=== PATIENT | male | born 1985 | race Caucasian/White ===

== ENCOUNTER 2018-07-22 23:31 | Emergency (ER) | payer SELFPAY ==
[~2018-07-22] VITALS: Ht 185.4 cm; Wt 138.3 kg
--- OUTSIDE RECORDS SUMMARY | 2018-07-22 23:38 | XMS REPORT ---
Author Author JEROME WALLER Organization [facility] Address [address] [place] [address] Care Team Providers Care Crm Architect Name Role Phone WALLERJEROME Unavailable PROBLEMS Type Condition ICD9-CM Code XFK62-LR Code Onset Dates Condition Status SNOMED Code Problem Anxiety F41.9 Active 10411314 Problem Insomnia G47.00 Active 639004358 ALLERGIES No Information ENCOUNTERS Encounter Location Date Diagnosis [facility] [id number] [place] [address] [id number] Jul, [id number] [place] [address] [id number] Jun, [facility] [id number] [place] [address] [id number] Jun, General medical examination Z00.00 [facility] [id number] [place] [address] [id number] Jun, Chest discomfort R07.89 ; Anxiety F41.9 ; Insomnia G47.00 ; General medical examination Z00.00 and BMI 40.0-44.9, adult Z68.41 [address] [id number] [place] [address] [phone] Dec, No diagnosis on [place] I Z03.89 [id number] [place] [address] [phone] Dec, Dental examination Z01.20 IMMUNIZATIONS No Known Immunizations SOCIAL HISTORY Never Assessed REASON FOR VISIT Med questions PLAN OF CARE VITAL SIGNS MEDICATIONS Unknown Medications RESULTS No Results PROCEDURES No Known procedures INSTRUCTIONS MEDICATIONS ADMINISTERED No Known Medications MEDICAL (GENERAL) HISTORY Type Description Date Surgical History No know Surgical history
--- OUTSIDE RECORDS SUMMARY | 2018-07-22 23:38 | XMS REPORT ---
Author Author JEROME WALLER Organization [facility] Address [address] [place] [address] Care Team Providers Care Float Nurse Name Role Phone SRIDHAR JEROME Unavailable PROBLEMS Type Condition ICD9-CM Code XBF98-XD Code Onset Dates Condition Status SNOMED Code Problem Anxiety F41.9 Active 33540414 Problem Insomnia G47.00 Active [id number] ALLERGIES No Information ENCOUNTERS Encounter Location Date Diagnosis [facility] [id number] [place] [address] [id number] Jul, [id number] [place] [address] [phone] Jun, [facility] [id number] [place] [address] [id number] Jun, General medical examination Z00.00 [facility] [id number] [place] [address] [id number] Jun, Chest discomfort R07.89 ; Anxiety F41.9 ; Insomnia G47.00 ; General medical examination Z00.00 and BMI 40.0-44.9, adult Z68.41 [address] [id number] [place] [phone] Dec, No diagnosis on [place] I Z03.89 [id number] [place] [address] [phone] Dec, Dental examination Z01.20 IMMUNIZATIONS No Known Immunizations SOCIAL HISTORY Never Assessed REASON FOR VISIT Labs Zina DIAS PLAN OF CARE Activity Details Pending Test INTERPRETATION Pending Test LIPID PANEL Pending Test CMP Pending Test CBC Pending Test THYROID ANALYZER Future/Pending Procedure ROUTINE VENIPUNCTURE VITAL SIGNS MEDICATIONS Unknown Medications RESULTS No Results PROCEDURES Procedure Date Ordered Result Body Site LIPID PANEL Jun 15, 2018 COMPREHEN METABOLIC PANEL Jun 15, 2018 ASSAY THYROID STIM HORMONE Jun 15, 2018 COMPLETE CBC W/AUTO DIFF WBC Jun 15, 2018 VENIPUNCT, ROUTINE* Jun 15, 2018 INSTRUCTIONS MEDICATIONS ADMINISTERED No Known Medications MEDICAL (GENERAL) HISTORY Type Description Date Surgical History No know Surgical history
[2018-07-23] MEDS ORDERED: VANCOMYCIN INJECTION 1,000 MG in NS (IVPB) 250 ML IV ONE (00:30)
[2018-07-23] MEDS ORDERED: KETOROLAC 30 MG/ML VIAL IVP ONE (00:30)
[2018-07-23] MEDS ORDERED: ACETAMINOPHEN 500 MG TAB (TYLENOL) PO ONE (00:30)
[2018-07-23 00:48] LABS: BASOPHILS % (AUTO) 0 % (0-10); EOSINOPHILS # (AUTO) 0.2 10^3/uL (0.0-0.3); EOSINOPHILS % (AUTO) 2 % (0-10); HEMATOCRIT 41 % (40-54); HEMOGLOBIN 13.9 G/DL (13.3-17.7); LYMPHOCYTES # (AUTO) 1.2 X 10^3 (1.0-4.0); LYMPHOCYTES % (AUTO) 12 % (12-44); MEAN CORPUSCULAR HEMOGLOBIN 30 PG (25-34); MEAN CORPUSCULAR HGB CONC 34 G/DL (32-36); MEAN CORPUSCULAR VOLUME 89 FL (80-99); MONOCYTES # (AUTO) 0.8 X 10^3 (0.0-1.0); MONOCYTES % (AUTO) 8 % (0-12); NEUTROPHILS # (AUTO) 7.6 X 10^3 (1.8-7.8); NEUTROPHILS % (AUTO) 78 % (42-75); PLATELET COUNT 148 10^3/uL (130-400); RED BLOOD COUNT 4.67 10^6/uL (4.35-5.85); RED CELL DISTRIBUTION WIDTH 13.3 % (10.0-14.5); WHITE BLOOD COUNT 9.8 10^3/uL (4.3-11.0)
[2018-07-23 00:58] LABS: PROTHROMBIN TIME PATIENT 12.8 SEC (12.2-14.7)
[2018-07-23 01:02] LABS: ALBUMIN 4.4 GM/DL (3.2-4.5); BILIRUBIN,TOTAL 0.4 MG/DL (0.1-1.0); CALCIUM 9.4 MG/DL (8.5-10.1); CREATININE SERUM 1.39 MG/DL (0.60-1.30); POTASSIUM 4.1 MMOL/L (3.6-5.0); TOTAL PROTEIN 7.2 GM/DL (6.4-8.2)
[2018-07-23 01:14] LABS: ERYTHROCYTE SEDIMENTATION RATE 20 MM/HR (0-15)
[2018-07-23] MEDS ORDERED: RX-TRAMADOL 50 MG (ULTRAM) TAB PPK#4 PO STA (02:51)
[2018-07-23] MEDS ORDERED: TRAM-42 PO (02:57)
[2018-07-23] MEDS ORDERED: SULF1TAB35 PO (02:57)
--- NOTE | 2018-07-23 02:57 | ED Integumentary General ---
General Chief Complaint: Bite-Animal/Human/Insect Stated Complaint: RT LEG,CALF- BUG BITE/FEVER 103. Nursing Triage Note: PT ARRIVES TO ED ROOM # 5 WITH C/O POSSIBLE INSECT/SPIDER BITE. PT STATES THAT HE NOTICED A SMALL PIMPLE LIKE BITE ON HIS RLE ON MONDAY. PT STATES HE WENT TO THE WALK IN CLINIC ON MONDAY AND WAS PRESCRIBED ABX. PT STATES THE BITE IS GETTING WORSE, INCREASING PAIN/REDDNESS/SWELLING, WARM TO TOUCH, AND HE SPIKED A FEVER OF 103.0 @2230 AND TOOK SOME IBUPROFEN. Source: patient History of Present Illness Date Seen by Provider: Jul 23, 2018 Time Seen by Provider: 00:19 Initial Comments PT ARRIVES VIA POV STATES "I GOT SOME KIND OF INFECTION" STATES HE NOTICED A SMALL SORE, BUMP ON LATERAL ASPECT OF RIGHT LOWER LEG ON Monday07/19/18. HAD INCREASED PAIN TO AREA ON MONDAY AND WENT TO [facility] IN [place]--STATES HIS WORK SENT HIM THERE. STATES HE WAS GIVEN RX FOR BACTRIM BEGAN RUNNING FEVER ON MONDAY AM OF 100 TONIGHT AT 2200, HIS FEVER GOT UP TO 103--TOOK IBUPROFEN AROUND 2230 STATES HE HAS INCREASED PAIN, REDNESS AND SWELLING TO LOWER LEG ALSO HAVING BODY ACHES NO DRAINAGE FROM THE AREA. NO KNOWN TRAUMA. PT DOES HAVE PSORIASIS, BUT THIS AREA IS NOT IN DIRECT INVOLVEMENT WITH AREAS OF SKIN WITH PSORIASIS PLAQUES AND NO GROSSLY OPEN SKIN FROM PSORIASIS. PT DOES NOT TAKE MEDICATION FOR PSORIASIS OR FOR ANY OTHER MEDICAL PROBLEMS PT DOES HAVE A HISTORY OF SIMILAR WHEN HE HAD A LARGE SCROTAL ABSCESS 2 YEARS AGO--NO SURGERY OR I&D, TREATED OUTPATIENT WITH ANTIBIOTICS. PT HAS FOLLOW UP APPOINTMENT TOMORROW MORNING AT 0945 AT [facility] IN [place] FOR THIS PROBLEM HE ALSO [facility], TO RECHECK / REVIEW ROUTINE LAB--HIGH TRIGLYCERIDES AND THYROID TESTS. PCP: NANETTE Allergies and Home Medications Allergies Coded Allergies: No Known Drug Allergies (Unverified , 07/23/18) Home Medications Sulfamethoxazole/Trimethoprim 1 Each Tablet, 2 EACH PO BID Prescribed by: MAREK VILLEGAS on 07/23/18256 Tramadol HCl 50 Mg Tablet, 50 MG PO Q4H Prescribed by: MAREK VILLEGAS on 07/23/18256 Patient Home Medication List Home Medication List Reviewed: Yes Review of Systems Review of Systems Constitutional: see HPI, fever Respiratory: no symptoms reported Cardiovascular: no symptoms reported Gastrointestinal: no symptoms reported Genitourinary: no symptoms reported Musculoskeletal: see HPI Skin: see HPI Psychiatric/Neurological: No Symptoms Reported; Denies Numbness, Denies Paresthesia, Denies Weakness Endocrine: No Symptoms Reported Hematologic/Lymphatic: No Symptoms Reported Past Pugvwlj-Xuaark-Oexzup Hx Patient Social History Alcohol Use: Past History (MODERATE ETOH WHEN YOUNG) Recreational Drug Use: Yes (THC WHEN YOUNG) Smoking Status: Current Everyday Smoker (1/2 PPD CIGARETTES IN PAST, NOW SMOKES CIGARS) Type Used: Cigars, Cigarettes 2nd Hand Smoke Exposure: No Recent Foreign Travel: No Contact w/Someone Who Travel: No Recent Infectious Disease Expo: No Recent Hopitalizations: No Physical Abuse: No Sexual Abuse: No Mistreated: No Fear: No Immunizations Up To Date Tetanus Booster (TDap): More than 5yrs (2009) Seasonal Allergies Seasonal Allergies: No Past Medical History Surgeries: No Respiratory: No Cardiac: No Neurological: No Genitourinary: No Gastrointestinal: No Musculoskeletal: No Endocrine: No HEENT: No Cancer: No Psychosocial: No Integumentary: Yes Psoriasis Blood Disorders: No Physical Exam Vital Signs Vital Signs - First Documented 07/23/18 07/23/18 00:53 02:14 Temp 102.3 Pulse 109 Resp 18 B/P (MAP) 145/75 (98) Pulse Ox 98 Capillary Refill : Less Than 3 Seconds General Appearance: no apparent distress, obese, other (TALKS LOUDLY, NON-STOP , ANXIOUS) Cardiovascular: regular rate, rhythm, no murmur Respiratory: normal breath sounds Extremities: normal range of motion, normal capillary refill, other (LATERAL ASPECT OF RIGHT LOWER LEG WITH TINY SCABBED AREA--APPROXIMATELY 3 CM IN DIAMETER. HAS LARGE AREA OF SURROUNDING ERYTHEMA, WARMTH, INDURATION AND MARKED TENDERNESS TO LATERAL ASPECT OF RIGHT LOWER LEG, EXTENDING TO POSTERIORLY TO MEDIAL CALF, AND EXTENDING ANTERIORLY TO MID LINE. EXTENDS DISTALLY TO JUST ABOVE THE ANKLE, AND EXTENDS PROXIMALLY TO POPLITEAL AREA. KNEE IS NOT INCLUDED , DOES NOT CROSS ANY JOINT LINES. NO AREAS OF FLUCTUANCE OR DRIAINGE. NO STREAKS. ) Neurologic/Psychiatric: polygraph operator II-XII nml as tested, no motor/sensory deficits, alert, oriented x 3 Skin: normal color, warm/dry, other ( ABOVE; ALSO NOTED TO HAVE TYPICAL APPEARING PLAQUE PSORIASIS TO KNEES. OTHER PARTS OF BODY) Progress/Results/Core Measures Results/Orders Lab Results Laboratory Tests Test 07/23/18 00:33 07/23/18 00:56 Range/Units White Blood Count 9.8 4.3-11.0 10^3/uL Red Blood Count 4.67 4.35-5.85 10^6/uL Hemoglobin 13.9 13.3-17.7 G/DL Hematocrit 41 40-54 % Mean Corpuscular Volume 89 80-99 FL Mean Corpuscular Hemoglobin 30 25-34 PG Mean Corpuscular Hemoglobin Concent 34 32-36 G/DL Red Cell Distribution Width 13.3 10.0-14.5 % Platelet Count 148 130-400 10^3/uL Mean Platelet Volume 12.0 H 7.4-10.4 FL Neutrophils (%) (Auto) 78 H 42-75 % Lymphocytes (%) (Auto) 12 12-44 % Monocytes (%) (Auto) 8 0-12 % Eosinophils (%) (Auto) 2 0-10 % Basophils (%) (Auto) 0 0-10 % Neutrophils # (Auto) 7.6 1.8-7.8 X 10^3 Lymphocytes # (Auto) 1.2 1.0-4.0 X 10^3 Monocytes # (Auto) 0.8 0.0-1.0 X 10^3 Eosinophils # (Auto) 0.2 0.0-0.3 10^3/uL Basophils # (Auto) 0.0 0.0-0.1 10^3/uL Erythrocyte Sedimentation Rate 20 H 0-15 MM/HR Prothrombin Time 12.8 12.2-14.7 SEC INR Comment 1.0 0.8-1.4 Activated Partial Thromboplast Time 40 H 24-35 SEC Sodium Level 136 135-145 MMOL/L Potassium Level 4.1 3.6-5.0 MMOL/L Chloride Level 102 98-107 MMOL/L Carbon Dioxide Level 23 21-32 MMOL/L Anion Gap 11 5-14 MMOL/L Blood Urea Nitrogen 13 7-18 MG/DL Creatinine 1.39 H 0.60-1.30 MG/DL Estimat Glomerular Filtration Rate 60 BUN/Creatinine Ratio 9 Glucose Level 114 H 70-105 MG/DL Calcium Level 9.4 8.5-10.1 MG/DL Corrected Calcium 9.1 8.5-10.1 MG/DL Total Bilirubin 0.4 0.1-1.0 MG/DL Aspartate Amino Transf (AST/SGOT) 22 5-34 U/L Alanine Aminotransferase (ALT/SGPT) 31 0-55 U/L Alkaline Phosphatase 78 40-136 U/L Total Protein 7.2 6.4-8.2 GM/DL Albumin 4.4 3.2-4.5 GM/DL Lactic Acid Level 1.01 0.50-2.00 MMOL/L Micro Results Microbiology 07/23/18 Influenza Types A,B Antigen (ROMEL) - Final, Complete My Orders Orders - MAREK VILLEGAS DO Saline Lock/Iv-Start (07/23/18 00:25) Cbc With Automated Diff (07/23/18 00:25) Comprehensive Metabolic Panel (07/23/18 00:25) Erythrocyte Sedimentation Rate (07/23/18 00:25) Lactic Acid Analyzer (07/23/18 00:25) Protime With Inr (07/23/18 00:25) Partial Thromboplastin Time (07/23/18 00:25) Wound Culture (07/23/18 00:25) Influenza A And B Antigens (07/23/18 00:25) Ct Extremity Lower Right W (07/23/18 00:25) Ketorolac Injection (Toradol Injection) (07/23/18 00:30) Vancomycin Injection (Vancomycin Injecti (07/23/18 00:30) Acetaminophen Tablet (Tylenol Tablet) (07/23/18 00:30) Blood Culture (07/23/18 00:41) Sulfamethoxazole/Trimet Ds Tab (Bactrim (07/23/18 03:00) Rx-Tramadol Hcl (Rx-Ultram) (07/23/18 02:51) Ibuprofen Tablet (Motrin Tablet) (07/23/18 03:00) Medications Given in ED Current Medications Medications Dose Ordered Sig/Margareth Route Start Time Stop Time Status Last Admin Dose Admin Acetaminophen 1,000 mg ONCE ONCE PO 07/23/18 00:30 07/23/18 00:31 DC 07/23/18 00:53 1,000 MG Ibuprofen 800 mg ONCE ONCE PO 07/23/18 03:00 07/23/18 03:03 DC 07/23/18 03:18 800 MG Ketorolac Tromethamine 30 mg ONCE ONCE IVP 07/23/18 00:30 07/23/18 00:31 DC 07/23/18 00:45 30 MG Trimethoprim/ Sulfamethoxazole 2 ea ONCE ONCE PO 07/23/18 03:00 07/23/18 03:01 DC 07/23/18 03:19 2 EA Vancomycin HCl 1000 mg/Sodium Chloride 250 ml @ 250 mls/hr ONCE ONCE IV 07/23/18 00:30 07/23/18 01:29 DC 07/23/18 02:13 250 MLS/HR Vital Signs/I&O 07/23/18 07/23/18 07/23/18 07/23/18 00:53 02:14 03:18 03:34 Temp 102.3 102.3 100.3 100.3 Pulse 109 89 Resp 18 18 B/P (MAP) 145/75 (98) 110/98 (102) Pulse Ox 98 98 Blood Pressure Mean: 98 Progress Progress Note : Progress Note SCAB DE-ROOFED AND EXPRESSED A VERY TINY AMOUNT OF PURULENT DRAINAGE TO CULTURE. NO DETERIORATION IN PT''S CONDITION DURING ER STAY ULTRASOUND IS NOT AVAILABLE AT THIS TIME. WILL DO CT. AREA IS LESS ERYTHEMATOUS AND PAIN IS IMPROVED AT DISMISSAL TEMP DOWN TO 100.3 AT DISMISSAL. Diagnostic Imaging Comments CT RIGHT LOWER EXTREMITY--DIFFUSE SIFT TISSUE STRANDING OF SUB Q TISSUES OF LATERAL AND POSTERIOR ASPECT OF RIGHT LEG. OUTSIDE OF MUSCLE FASCIA. NO DRAINABLE FLUID COLLECTION. NORMAL BONES AND PATENT VESSELS, PER [facility] VIA FAX @ 3603 Reviewed: Reviewed by Me Departure Impression Primary Impression: Cellulitis of right lower extremity without foot Additional Impression: SUSPECTED MRSA Disposition: HOME, SELF-CARE Condition: Improved Departure-Patient Inst. Referrals: [facility] Patient Instructions: Cellulitis (Skin Infection), Adult (DC), Methicillin- Resistant Staphylococcus aureus (MRSA) Add. Discharge Instructions: CLEAN AREA TWICE A DAY WITH ANTIBACTERIAL SOAP AND WATER IF AREA BEGINS TO DRAIN, KEEP IT COVERED ELEVATE LEG MUCH POSSIBLE TYLENOL 1 GRAM / MOTRIN 800 MG 4 TIMES A DAY FOR PAIN OR FEVER DOUBLE YOUR BACTRIM TO 2 PILLS TWICE A DAY KEEP YOUR APPOINTMENTS TOMORROW WITH [facility] AND WITH OCCUMED All discharge instructions reviewed with patient and/or family. Voiced understanding. Scripts Tramadol HCl (Ultram) 50 Mg Tablet 50 MG PO Q4H, #20 TAB Prov: MAREK VILLEGAS DO 07/23/18 Sulfamethoxazole/Trimethoprim (Bactrim Ds Tablet) 1 Each Tablet 2 EACH PO BID, #40 TAB Prov: MAREK VILLEGAS DO 07/23/18 MAREK VILLEGAS DO Jul 23, 2018 02:57
[2018-07-23] MEDS ORDERED: TRIM/SULFAMETH 160/800 (SEPTRA DS) TAB PO ONE (03:00)
[2018-07-23] MEDS ORDERED: IBUPROFEN 800 MG (MOTRIN) TAB PO ONE (03:00)
[2018-07-23 03:34] VITALS: BP 110/98
--- NOTE | 2018-07-23 08:21 | Diagnostic Imaging Report ---
PROCEDURE: CT right lower extremity with contrast. TECHNIQUE: Multiple contiguous axial CT images of the right extremity were obtained after intravenous administration of iodinated contrast. INDICATION: Right leg swelling, redness, pain COMPARISON: None FINDINGS: No acute fracture or dislocation is seen in the right tibia/fibula. Alignment appears normal. There is fragmentation of the tibial tuberosity likely from old Alvaro-Schlatter disease. No significant right knee joint effusion is seen. No osseous erosions or periosteal reaction is appreciated. Small calcifications are seen at the ankle, at the posterior medial ankle and distal to the fibula. This may be due to remote trauma. There is moderate to marked subcutaneous and superficial fascial edema at the anterior and lateral aspect of the right lower leg. No soft tissue gas is seen. There are areas of confluent edema, but no rim-enhancing fluid collection is seen. No masses are identified. Arterial structures appear grossly patent. No muscular atrophy is seen. IMPRESSION: 1. No acute osseous abnormalities seen in the right tibia/fibula. 2. Moderate to marked superficial soft tissue edema at the right lower leg, with no rim-enhancing drainable fluid collection seen. No soft tissue gas. Dictated by: Dictated on workstation # [id number]
== END 2018-07-23 03:36 | disposition home or self-care (01) ==
LOC: ER 23:35
DX: L03.115 Cellulitis of right lower limb (principal); F12.10 Cannabis abuse, uncomplicated; F17.210 Nicotine dependence, cigarettes, uncomplicated
CPT/HCPCS: 36415; 73701; 80053; 83605; 85025; 85610; 85652; 85730; 87040; 87070; 87077; 87205; 87804

== ENCOUNTER → 2020-02-13 | Outpatient (CLI) | payer BC ==
[~2020-02-13] MED LIST: SULF1TAB35 PO; TRAM-42 PO
--- NOTE | 2020-02-13 17:47 | Diagnostic Imaging Report ---
INDICATION: Chronic mid back pain. TECHNIQUE: Multiplanar and multisequence noncontrast MR imaging was performed of the thoracic spine. COMPARISON: None. FINDINGS: Slightly accentuated lower thoracic kyphosis. Alignment is otherwise relatively anatomic. Thoracic vertebral body heights demonstrate minimal anterior wedging at T12 and to a lesser degree T11 level. No significant loss of height. No concerning geographic lesion. A few small hemangiomas are present, particularly at the T10 and T12 levels. Thoracic spinal cord is of relatively normal caliber and signal intensity. At T5-T6 level, posteriorly, there appears to be somewhat more prominent thickening of the ligamentum flavum. While it results in some narrowing of the posterior spinal canal, the dura and thecal sac are not significantly effaced. At the T10-T11 and T11-T12 levels, there is some asymmetric loss of disc space height. Prominent disc and osteophyte formation is present. At T10-T11 level, there is asymmetric left foraminal narrowing. At T11-T12 level, there is slightly more focal left paramidline disc protrusion. Canal is at approximately 8 mm. The remaining thoracic disc levels overall are fairly well maintained. There are no additional areas of canal and/or foraminal compromise. IMPRESSION: 1. Asymmetric degenerative disc disease with disc and osteophyte formation at the T10-T11 and T11-T12 levels resulting in mild canal and foraminal narrowing. 2. Slightly accentuated ligamentum flavum hypertrophy at the T5-T6 level but without significant canal stenosis. Dictated by: Dictated on workstation # [id number]
== END ==
LOC: RAD 12:05
PROVIDERS: ATTEND Internal Medicine
DX: M51.14 Intervertebral disc disorders with radiculopathy, thoracic region (principal); M48.04 Spinal stenosis, thoracic region; M25.78 Osteophyte, vertebrae
CPT/HCPCS: 72146